=== PATIENT | female | born 1945 | race Caucasian/White ===

== ENCOUNTER 2017-04-07 07:59 | Inpatient (IN) | payer MEDICARE ==
[2017-04-05 11:41] LABS: PRE OP PROTIME 10.3 SECONDS (9.0-12.0)
[2017-04-05 11:45] LABS: BASOPHILS % (AUTO) 0.6 % (0-1); EOSINOPHILS # (AUTO) 0.3 X10'3 (0-0.9); EOSINOPHILS % (AUTO) 4.2 % (0-6); LYMPHOCYTES # (AUTO) 1.6 X10'3 (1.1-4.8); LYMPHOCYTES % (AUTO) 27.1 % (21-51); MEAN CORPUSCULAR HGB CONC 33.2 % (33.0-36.5); MEAN CORPUSCULAR VOLUME 90.6 FL (78-98); MEAN PLATELET VOLUME 8.5 FL (7.4-10.4); MONOCYTES # (AUTO) 0.3 X10'3 (0-0.9); MONOCYTES % (AUTO) 4.5 % (2-12); NEUTROPHILS # (AUTO) 3.8 X10'3 (1.8-7.7); NEUTROPHILS % (AUTO) 63.6 % (42-75); PRE OP HEMATOCRIT 46.4 % (35.0-45.0); PRE OP HEMOGLOBIN 15.4 g/dL (12.0-16.0); PRE OP PLATELET COUNT 240 X10'3 (140-440); RED BLOOD COUNT 5.12 X10'6 (4.20-5.60); RED CELL DISTRIBUTION WIDTH 13.7 % (11.5-14.5)
[2017-04-05 11:46] LABS: ALBUMIN 4.3 G/DL (3.4-5.0); ALBUMIN/GLOBULIN RATIO 1.1 (1.1-1.5); ALKALINE PHOSPHATASE 93 IU/L (46-116); BLOOD UREA NITROGEN 13 MG/DL (7-18); BUN/CREATININE RATIO 26.5 (6.6-38.0); CALCIUM 9.5 MG/DL (8.5-10.1); CHLORIDE 103 MMOL/L (99-107); CREATININE 0.49 MG/DL (0.40-0.90); PRE OP ALT 39 U/L (30-65); PRE OP ANION GAP 9 (8-16); PRE OP AST 22 U/L (10-37); PRE OP BILIRUB, TOTAL 0.7 MG/DL (0.0-1.0); PRE OP GLUCOSE 144 MG/DL (70-104); PRE OP POTASSIUM 3.8 MMOL/L (3.4-5.1); PRE OP SODIUM 141 MMOL/L (135-145); TOTAL CARBON DIOXIDE 28.6 MMOL/L (24-32); TOTAL PROTEIN 8.3 G/DL (6.4-8.2); eGFR > 90 ML/MIN
[2017-04-05 12:08] LABS: HEMOGLOBIN A1C 6.9 % (4.5-6.2)
[2017-04-07] VITALS (18 sets, daily range): BP systolic 101–138; BP diastolic 57–76
[~2017-04-07] VITALS: Ht 157.5 cm; Wt 69.7 kg
[~2017-04-07 07:59] MED LIST: AMLO2.5T2 PO; CANA100T PO; CARV-50 PO; DOCUMENT DATE & TIME OF BETA-BLOCKER PO ONE; FURO80TA87 PO; GLIP10TA11 PO; LOSA50TA3 PO; MELO-100 PO; OMEP20CA10 PO; POTA10CA44 PO; ceFAZolin 2gm in dextrose, iso 50 ML IV ONE; famotidine 20mg tablet PO ONE; ringers solution, lacted 1,000 ML IV SCH; scopolamine 1.5mg patch.TD72 TD ONE; vancomycin inj 1,500 MG in normal saline 300ml IV soln IV ONE
[2017-04-07] MEDS ORDERED: LIDOcaine 1% (10mg/ml) 2ml vial ONE (08:36)
[2017-04-07] MEDS ORDERED: ROPIVAcaine 0.5% (5mg/ml) 30ml vial ONE ×2 (10:47→11:09)
[2017-04-07] MEDS ORDERED: acetaminophen 1,000mg/100ml IV 100 ML IV ONE (10:47)
[2017-04-07] MEDS ORDERED: fentaNYL/PF 50MCG/1 ML 2ML syringe ONE (10:49)
[2017-04-07] MEDS ORDERED: midazolam 2 mg/2 ml injection ONE (10:50)
[2017-04-07] MEDS ORDERED: LIDOcaine 2% (20mg/ml) 5ml vial ONE (10:53)
[2017-04-07] MEDS ORDERED: propofol inj 20 ML IV ONE ×2 (10:53→12:32)
[2017-04-07] MEDS ORDERED: vancomycin 1,000mg inj ONE (11:08)
[2017-04-07] MEDS ORDERED: ketorolac trometh. 30mg/ml inj. ONE ×2 (11:08→12:49)
[2017-04-07] MEDS ORDERED: NORMAL SALINE IV ONE ×5 (11:35→17:00)
[2017-04-07] MEDS ORDERED: TRANEXAMIC ACID IV ONE ×5 (11:35→17:00)
[2017-04-07] MEDS ORDERED: dexamethasone sod phosphate 4mg/ml inj. ONE (12:00)
[2017-04-07] MEDS ORDERED: sevoflurane 250ml liquid IH ONE (12:00)
[2017-04-07] MEDS ORDERED: ePHEDrine 50MG/ML INJ. ONE (12:27)
[2017-04-07] MEDS ORDERED: ondansetron/PF 4mg/2ml inj ONE (12:48)
[2017-04-07] MEDS ORDERED: enalaprilat dihydrate 2.5mg/2ml vial IV PRN (12:55)
[2017-04-07] MEDS ORDERED: hydrALAZINE 20mg/ml inj. IV PRN (12:55)
[2017-04-07] MEDS ORDERED: fentaNYL/PF 50MCG/1 ML 2ML syringe IV PRN ×2 (12:55)
[2017-04-07] MEDS ORDERED: ringers solution, lacted 1,000 ML IV SCH (12:55)
[2017-04-07] MEDS ORDERED: proCHLORperazine 10 MG/2 ml inj IV PRN (12:55)
[2017-04-07] MEDS ORDERED: proMETHazine 25mg rectal suppository RC PRN (12:55)
[2017-04-07] MEDS ORDERED: diphenhydrAMINE 25mg capsule PO PRN ×2 (14:10)
[2017-04-07] MEDS ORDERED: bisacodyl 10mg suppository rectal RC PRN (14:10)
[2017-04-07] MEDS ORDERED: oxyCODONE IR 5mg (immed. release) tablet PO PRN ×2 (14:10)
[2017-04-07] MEDS ORDERED: HYDROmorphone 1 mg/ml syringe IV PRN ×2 (14:10)
[2017-04-07] MEDS ORDERED: ondansetron/PF 4mg/2ml inj IV PRN (14:10)
[2017-04-07] MEDS ORDERED: acetaminophen 325mg tablet PO PRN (14:10)
[2017-04-07] MEDS ORDERED: magnesium hydroxide 30ml (MOM) UD suspension PO PRN (14:10)
[2017-04-07] MEDS ORDERED: ceFAZolin/D5W- 1GM premix 50 ML IV SCH ×3 (16:00→18:00)
[2017-04-07] MEDS ORDERED: CEFAZOLIN SODIUM/NORMAL SALINE 100 ML IV SCH (16:54)
[2017-04-07] MEDS: potassium cl 20mEq in 1/2 NS 1,000 ML IV SCH (16:55)
[2017-04-07] MEDS: ceFAZolin/D5W- 1GM premix 50 ML IV SCH (18:45)
[2017-04-07] MEDS ORDERED: celeCOXIB 100mg capsule PO SCH (20:00)
[2017-04-07] MEDS ORDERED: vancomycin/NS 1 GM ADD-VANTAGE 250 ML IV SCH (20:00)
[2017-04-07] MEDS: acetaminophen 325mg tablet PO SCH (20:20)
[2017-04-07] MEDS: gabapentin 300mg capsule PO SCH (20:20)
[2017-04-07] MEDS: ketorolac tromethamine 15mg/ml inj. IV SCH (20:20)
[2017-04-07] MEDS ORDERED: sennosides 8.6mg tablet PO SCH (21:00)
[2017-04-07] MEDS ORDERED: MESSAGE TO PHARMACY PO ONE (21:35)
[2017-04-07] MEDS ORDERED: dextrose ORAL solution 15 GM/59 ML bottle PO PRN ×2 (21:35)
[2017-04-07] MEDS ORDERED: dextrose 50%-water 50ml dispensing syringe IV PRN ×2 (21:35)
[2017-04-07] MEDS ORDERED: glucagon, human recombinant 1mg kit SUBCUT PRN (21:35)
[2017-04-07] MEDS: insulin Lispro (HumaLOG) vial - multi-dose SQ SCH (22:13)
[2017-04-08] MEDS: ceFAZolin/D5W- 1GM premix 50 ML IV SCH (00:07)
[2017-04-08] MEDS: potassium cl 20mEq in 1/2 NS 1,000 ML IV SCH ×2 (02:12→06:09)
[2017-04-08] MEDS: ketorolac tromethamine 15mg/ml inj. IV SCH ×2 (02:12→09:21)
[2017-04-08] MEDS: acetaminophen 325mg tablet PO SCH ×2 (02:12→09:21)
[2017-04-08 02:19] VITALS: BP 109/70
[2017-04-08 06:00] VITALS: BP 96/51
[2017-04-08 06:22] LABS: BASOPHILS % (AUTO) 0.1 % (0-1); EOSINOPHILS # (AUTO) 0.1 X10'3 (0-0.9); EOSINOPHILS % (AUTO) 1.3 % (0-6); HEMOGLOBIN 12.9 g/dl (12.0-16.0); LYMPHOCYTES # (AUTO) 1.2 X10'3 (1.1-4.8); LYMPHOCYTES % (AUTO) 10.6 % (21-51); MEAN CORPUSCULAR HEMOGLOBIN 30.8 PG (27.0-31.0); MEAN CORPUSCULAR HGB CONC 33.8 % (33.0-36.5); MEAN CORPUSCULAR VOLUME 91.2 FL (78-98); MEAN PLATELET VOLUME 8.7 FL (7.4-10.4); MONOCYTES # (AUTO) 0.7 X10'3 (0-0.9); MONOCYTES % (AUTO) 5.8 % (2-12); NEUTROPHILS # (AUTO) 9.5 X10'3 (1.8-7.7); NEUTROPHILS % (AUTO) 82.2 % (42-75); PLATELET COUNT 204 X10'3 (140-440); RED BLOOD COUNT 4.17 X10'6 (4.20-5.60); WHITE BLOOD COUNT 11.6 X10'3 (4.5-11.0)
[2017-04-08 07:00] LABS: ANION GAP 8 (8-16); CHLORIDE 108 MMOL/L (99-107); SODIUM 139 MMOL/L (135-145); TOTAL CARBON DIOXIDE 23.2 MMOL/L (24-32)
[2017-04-08] MEDS ORDERED: pantoprazole 40mg Tablet.DR PO SCH (07:30)
[2017-04-08] MEDS ORDERED: potassium chloride 10mEq CAPSULE.SA PO SCH (08:00)
[2017-04-08] MEDS ORDERED: non-formulary drug (Meloxicam* 2 TAB) PO SCH (08:00)
[2017-04-08] MEDS ORDERED: losartan 50mg tablet PO SCH (08:00)
[2017-04-08] MEDS ORDERED: furosemide 20MG tablet PO SCH (08:00)
[2017-04-08] MEDS ORDERED: amLODIPine 2.5mg tablet PO SCH (08:00)
[2017-04-08] MEDS ORDERED: carVEDilol 12.5mg tablet PO SCH (08:00)
[2017-04-08] MEDS ORDERED: aspirin 325mg tablet PO SCH (08:30)
[2017-04-08] MEDS: gabapentin 300mg capsule PO SCH (09:19)
[2017-04-08] MEDS: insulin Lispro (HumaLOG) vial - multi-dose SQ SCH (09:36)
[2017-04-08 11:00] VITALS: BP 98/59
[2017-04-08] MEDS ORDERED: Insulin Detemir pen SQ SCH (21:00)
== END 2017-04-08 11:05 | disposition home or self-care (01) | DRG 483 ==
LOC: PAS IN 07:59 → EDSTATUS 11:00 → ORTHO 4S 15:20
PROVIDERS: ADMIT Orthopaedic Surgery; ATTEND Orthopaedic Surgery
PROC: 0LS40ZZ Reposition Left Upper Arm Tendon, Open Approach (ICD-10-PCS; 2017-04-07)
PROC: 3E0T3BZ Introduction of Anesthetic Agent into Peripheral Nerves and Plexi, Percutaneous Approach (ICD-10-PCS; 2017-04-07)
PROC: 0RRK0JZ Replacement of Left Shoulder Joint with Synthetic Substitute, Open Approach (ICD-10-PCS; principal; 2017-04-07 12:00)
DX: M19.012 Primary osteoarthritis, left shoulder (principal); E11.9 Type 2 diabetes mellitus without complications; M54.12 Radiculopathy, cervical region; G89.29 Other chronic pain; I10 Essential (primary) hypertension; K21.9 Gastro-esophageal reflux disease without esophagitis; M75.22 Bicipital tendinitis, left shoulder; Z88.8 Allergy status to other drugs, medicaments and biological substances; Z88.5 Allergy status to narcotic agent; Z79.899 Other long term (current) drug therapy
CPT/HCPCS: 36415; 71046; 80051; 80053; 82948; 83036; 85025; 85610; 85730; 87070; 93005; 97116; 97162; 97530; A4565; A7000; C1713; C1776; J0131; J0690; J1100; J1885; J2001; J2250; J2405; J2704; J2795; J3010; J3370; J3490; J7120; Q0163